=== PATIENT | male | born 1980 | race Caucasian/White ===

== ENCOUNTER 2021-01-19 09:06 | Outpatient (REF) | payer MEDICAID, SELFPAY ==
--- NOTE | ~2021-01-19 | XR_ITS ---
EXAMINATION: BILATERAL HAND X-RAY CLINICAL INFORMATION: Bilateral hand pain COMPARISON: None TECHNIQUE: 3 views of each hand FINDINGS: Right: Bone alignment is normal. No fracture or dislocation is seen. Joint spaces are normal. There is a small 2 mm radiopaque soft tissue foreign body adjacent to the radial dorsal middle phalanx of the third finger. Soft tissues are otherwise unremarkable. Left: Bone alignment is normal. No fracture or dislocation is seen. Joint spaces are normal. Soft tissues are normal. XR/XR hand LT min 3V IMPRESSION: Right: Radiopaque soft tissue foreign body adjacent to the middle phalanx of the third finger. Left: Unremarkable exam.
--- NOTE | ~2021-01-19 | XR_ITS ---
EXAMINATION: BILATERAL HAND X-RAY CLINICAL INFORMATION: Bilateral hand pain COMPARISON: None TECHNIQUE: 3 views of each hand FINDINGS: Right: Bone alignment is normal. No fracture or dislocation is seen. Joint spaces are normal. There is a small 2 mm radiopaque soft tissue foreign body adjacent to the radial dorsal middle phalanx of the third finger. Soft tissues are otherwise unremarkable. Left: Bone alignment is normal. No fracture or dislocation is seen. Joint spaces are normal. Soft tissues are normal. XR/XR hand RT min 3V IMPRESSION: Right: Radiopaque soft tissue foreign body adjacent to the middle phalanx of the third finger. Left: Unremarkable exam.
[2021-01-19 09:42] LABS: MANUAL DIFF FLAG NO
[2021-01-19 09:46] LABS: Basophils Percent Auto 0.6 % (0-2); Eosinophils Absolute Auto 0.3 X10*3/uL (0.0-0.4); Eosinophils Percent Auto 5.4 % (0-4); Hematocrit 42.9 % (42-52); Hemoglobin 14.4 g/dl (14.0-18.0); Imm Gran Abs Auto 0.01 X10*3/uL (0.00-0.03); Imm Gran Pct Auto 0.2 % (0.0-0.4); Lymphocytes Absolute Auto 1.7 X10*3/uL (1.2-4.9); Lymphocytes Percent Auto 31.1 % (20-40); Mean Corpuscular HGB Conc 33.6 g/dl (31.0-36.0); Mean Corpuscular Hemoglobin 29.4 pg (27.0-33.0); Mean Corpuscular Volume 87.7 fL (80-98); Mean Platelet Volume 10.6 fL (9.4-12.4); Monocytes Absolute Auto 0.4 X10*3/uL (0.1-1.2); Monocytes Percent Auto 7.8 % (2-11); Neutrophils Percent Auto 54.9 % (45-73); Platelet Count 230 X10*3/uL (160-400); Red Blood Count 4.89 X10*6/uL (4.60-5.80); White Blood Count 5.4 X10*3/uL (4.8-10.8)
[2021-01-19 10:09] LABS: Estimated Average Glucose 111 mg/dL; Hemoglobin A1c % 5.5 %
[2021-01-19 10:26] LABS: Alanine Aminotransferase 45 U/L (0-40); Albumin Level 4.3 g/dL (3.5-5.0); Alkaline Phosphatase 82 U/L (39-117); Anion Gap 11 (12-20); Aspartate Amino Transferase 31 U/L (5-37); Bilirubin Direct 0.2 mg/dL (0.0-0.5); Bilirubin Total 0.6 mg/dL (0.0-1.0); Blood Urea Nitrogen 21 mg/dL (9-16); Calcium 9.2 mg/dL (8.4-10.2); Carbon Dioxide 27 mmol/L (22-29); Chloride 107 mmol/L (96-108); Estimated Glomerular Filt Rate > 60; Glucose Random 105 mg/dL (60-115); Potassium 4.1 mmol/L (3.3-5.1); Sodium 141 mmol/L (135-145); Total Protein 7.2 g/dL (6.5-8.0)
[2021-01-19 10:47] LABS: TSH reflex Free T4 0.77 uIU/mL (0.32-4.0)
== END 2021-01-19 09:07 | disposition home or self-care (01) ==
LOC: HO.LAB 09:06
PROVIDERS: PCP Internal Medicine; Visit Provider Internal Medicine
DX: K59.01 Slow transit constipation (principal); R10.13 Epigastric pain; M79.641 Pain in right hand; M79.642 Pain in left hand
CPT/HCPCS: 36415; 73130; 80048; 80076; 83036; 84443; 85025; 87338

== ENCOUNTER 2022-03-05 11:00 | Outpatient (RCR) | payer MEDICAID, SELFPAY | END 2022-03-22 11:48 | disposition home or self-care (01) | LOC: HO.PTCHIC 11:00 | PROVIDERS: PCP Internal Medicine; Visit Provider Internal Medicine | DX: M26.602 Left temporomandibular joint disorder, unspecified (principal) | CPT/HCPCS: 97110; 97161 ==

== ENCOUNTER 2023-09-15 09:40 | Outpatient (REF) | payer MEDICAID, SELFPAY ==
--- NOTE | ~2023-09-15 | XR_ITS ---
EXAMINATION: XR KNEE, LEFT CLINICAL INFORMATION: Left knee pain, swelling, trauma one month prior COMPARISON: None available. TECHNIQUE: Four views of the left knee. FINDINGS: No fracture or joint effusion. Alignment is anatomic. Joint spaces are maintained. No abnormal soft tissue calcification. XR/XR knee LT 4V IMPRESSION: Unremarkable plain radiographs of the left knee.
== END 2023-09-15 09:41 | disposition home or self-care (01) ==
LOC: HO.HHCX 09:40
PROVIDERS: Visit Provider Family Medicine
DX: M25.562 Pain in left knee (principal)
CPT/HCPCS: 0353U; 36415; 73564; 80048; 80076; 82043; 82306; 82570; 83036; 84439; 84443; 85025; 86695; 86696; 86706; 86780; 86803; 87340; 87389

== ENCOUNTER 2023-09-15 10:05 | Outpatient (REF) | payer MEDICAID, SELFPAY ==
[2023-09-15 11:17] LABS: MANUAL DIFF FLAG NO
[2023-09-15 11:24] LABS: Basophils Percent Auto 0.5 % (0-2); Eosinophils Absolute Auto 0.2 X10*3/uL (0.0-0.4); Eosinophils Percent Auto 5.3 % (0-4); Imm Gran Abs Auto 0.01 X10*3/uL (0.00-0.03); Imm Gran Pct Auto 0.2 % (0.0-0.4); Lymphocytes Absolute Auto 1.5 X10*3/uL (1.2-4.9); Mean Corpuscular HGB Conc 33.3 g/dl (31.0-36.0); Mean Corpuscular Hemoglobin 30.1 pg (27.0-33.0); Mean Corpuscular Volume 90.2 fL (80.0-98.0); Mean Platelet Volume 10.4 fL (9.4-12.4); Monocytes Absolute Auto 0.4 X10*3/uL (0.1-1.2); Monocytes Percent Auto 8.9 % (2-11); Neutrophils Absolute Auto 2.1 x10*3/uL (2.0-8.3); Neutrophils Percent Auto 50.1 % (45-73); Platelet Count 235 X10*3/uL (160-400); Red Blood Count 4.99 X10*6/uL (4.60-5.80); Red Cell Distribution Width 12.2 % (11.0-16.0); White Blood Count 4.1 X10*3/uL (4.8-10.8)
[2023-09-15 11:32] LABS: Estimated Average Glucose 103 mg/dL; Hemoglobin A1c % 5.2 % (<6.0)
[2023-09-15 12:48] LABS: Free T4 (Free Thyroxine) 1.01 ng/dL (0.71-1.85); Thyroid Stimulating Hormone 1.01 uIU/mL (0.32-4.0); Vitamin D 25-OH Total 20.7 ng/mL (>30)
[2023-09-15 13:01] LABS: Anion Gap 12 (12-20)
[2023-09-15 13:06] LABS: Alanine Aminotransferase 24 U/L (0-40); Albumin Level 4.4 g/dL (3.5-5.0); Alkaline Phosphatase 89 U/L (39-117); Aspartate Amino Transferase 19 U/L (5-37); Bilirubin Direct 0.2 mg/dL (0.0-0.5); Bilirubin Total 0.5 mg/dL (0.0-1.0); Blood Urea Nitrogen 18 mg/dL (9-16); Calcium 9.7 mg/dL (8.4-10.2); Carbon Dioxide 24 mmol/L (22-29); Chloride 107 mmol/L (96-108); Estimated Glomerular Filt Rate > 60; Glucose Random 86 mg/dL (60-115); Potassium 3.8 mmol/L (3.3-5.1); Sodium 139 mmol/L (135-145); Total Protein 7.8 g/dL (6.5-8.0)
[2023-09-15 13:27] LABS: Creatinine Urine 213.21 mg/dL; Microalbum/Creatinine Ratio Ur 3.2 ug/mg cr (<30)
[2023-09-15 15:10] LABS: CT PCR NOT DETECTED (Not Detect.); NG PCR NOT DETECTED (Not Detect.)
[2023-09-16 07:41] LABS: Syphilis Screen Nonreactive (Nonreactive)
[2023-09-16 08:14] LABS: HBS Num1 > 1000.00 mIU/mL (0-7.99); HIV AB/AG Nonreactive (Nonreactive); HIV Num 1 0.06 S/CO (0.00-0.99); Hepatitis B Surface Antigen Negative (Negative); ~HepC Num1 0.07 S/CO (0.00-0.79); ~Hepatitis B Surface Antibody REACTIVE (Nonreactive); ~Hepatitis C Antibody Nonreactive (Nonreactive)
[2023-09-16 18:09] LABS: Herpes Simplex Type 2 IgG <0.90 index
== END 2023-09-15 10:06 | disposition home or self-care (01) ==
LOC: HO.HHCL 10:05
PROVIDERS: Visit Provider Family Medicine
DX: Z11.3 Encounter for screening for infections with a predominantly sexual mode of transmission (principal); Z11.4 Encounter for screening for human immunodeficiency virus [HIV]; R03.0 Elevated blood-pressure reading, without diagnosis of hypertension
CPT/HCPCS: 0353U; 36415; 80048; 80076; 82043; 82306; 82570; 83036; 84439; 84443; 85025; 86695; 86696; 86706; 86780; 86803; 87340; 87389

== ENCOUNTER 2023-09-20 15:30 | Outpatient (REF) | payer MEDICAID, SELFPAY ==
[2023-09-22 10:19] LABS: Trichomonas vag. RNA Ur Male NOT DETECTED (NOT DETECTED)
== END 2023-09-20 15:31 | disposition home or self-care (01) ==
LOC: HO.LAB 15:30
PROVIDERS: Visit Provider Family Medicine
DX: Z11.3 Encounter for screening for infections with a predominantly sexual mode of transmission (principal)
CPT/HCPCS: 36415; 87661

== ENCOUNTER 2023-09-27 14:40 | Outpatient (AMB) | payer MEDICAID, SELFPAY ==
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
[2023-09-27 14:55] VITALS: BMI 28.9
== END 2023-09-27 15:17 | disposition home or self-care (01) ==
PROVIDERS: PCP Internal Medicine; Visit Provider Orthopaedic Surgery
DX: M25.562 Pain in left knee (principal)
CPT/HCPCS: 99202

== ENCOUNTER → 2023-09-27 14:40 | Outpatient (BNVA) | payer MEDICAID, SELFPAY | PROVIDERS: PCP Internal Medicine; Visit Provider Orthopaedic Surgery | DX: M25.562 Pain in left knee (principal) | CPT/HCPCS: 99202 ==

== ENCOUNTER → 2023-10-18 14:02 | Outpatient (BNV) | payer MEDICAID, OTHER, SELFPAY | PROVIDERS: PCP Family Medicine; Visit Provider Internal Medicine Medical Oncology | DX: I82.452 Acute embolism and thrombosis of left peroneal vein (principal) | CPT/HCPCS: 99204; 99213 ==

== ENCOUNTER 2023-11-03 14:02 | Outpatient (REF) | payer OTHER, SELFPAY ==
--- NOTE | ~2023-11-03 | US_ITS ---
EXAMINATION: US VENOUS ULTRASOUND WITH DOPPLER LOWER EXTREMITY, LEFT CLINICAL INFORMATION: History of DVT. COMPARISON: None available. TECHNIQUE: Ultrasound of the deep veins is performed from the hip to the calf with compression sonography and color and pulse Doppler assessment. Spectral analysis with color-flow imaging is performed. FINDINGS: There is normal venous compression and respiratory variation and augmented flow. The visualized common femoral vein, superficial femoral vein, profunda femoral vein, popliteal vein, and the trifurcation region shows no evidence of deep venous thrombosis. If the patient's symptoms persist, followup ultrasound in 5 days 7 days might be of value to exclude proximal propagation from a non-visualized calf vein. US/US venous duplex LE IMPRESSION: No DVT demonstrated in the left lower extremity.
== END 2023-11-03 14:03 | disposition home or self-care (01) ==
LOC: HO.HMGCX 14:02
PROVIDERS: PCP Family Medicine; Visit Provider Internal Medicine Medical Oncology
DX: I82.402 Acute embolism and thrombosis of unspecified deep veins of left lower extremity (principal)
CPT/HCPCS: 93971

== ENCOUNTER 2023-11-07 15:55 | Outpatient (REF) | payer OTHER, SELFPAY ==
--- NOTE | ~2023-11-07 | MR_ITS ---
EXAMINATION: MR KNEE WITHOUT CONTRAST, LEFT CLINICAL INFORMATION: Left knee pain. COMPARISON: Radiographs dated 09/05/2023. TECHNIQUE: MRI of the knee without contrast was performed using routine sequences on a high-field scanner. FINDINGS: MENISCI: Medial Meniscus: There is a complex tear of the posterior horn and body with decreased orthotopic meniscal tissue due to 2 displaced flap fragments. At the junction of the anterior horn and body, there is a 2 cm long meniscal flap fragment which is displaced proximally along the anteromedial margin of the medial femoral condyle (image 18/27 of series 6). At the posterior root, there is a 1.8 cm meniscal fragment which is displaced anterolaterally. A horizontal component to the tear is present at the orthotopic meniscal tissue at the posterior horn and body with abnormal increased intrasubstance signal. Lateral Meniscus: Intact LIGAMENTS: Cruciate: Intact Collateral: Intact EXTENSOR MECHANISM: Quadriceps and patellar tendons are intact. There is mild edema signal in the inferolateral aspect of the prefemoral fat pad. ARTICULAR CARTILAGE/BONE: Patellofemoral Compartment: At the inferolateral margin of the patella, there is a small 6 mm osseous fragment which may correspond to an old avulsion injury or developmental variant. Articular cartilage appears relatively well-preserved. Medial Compartment: Normal Lateral Compartment: Normal JOINT FLUID AND BURSAE: Small joint effusion. Trace Taylor's cyst. No appreciable intra-articular loose bodies. MR/MR knee LT wo con IMPRESSION: 1. Complex tear of the posterior horn and body of the medial meniscus with 2 displaced flap fragments. 2. Small joint effusion and trace Taylor's cyst.
== END 2023-11-07 15:56 | disposition home or self-care (01) ==
LOC: HO.MRI 15:55
PROVIDERS: PCP Family Medicine; Visit Provider Orthopaedic Surgery
DX: M25.562 Pain in left knee (principal)
CPT/HCPCS: 73721

== ENCOUNTER 2023-11-22 11:01 | Outpatient (AMB) | payer OTHER, SELFPAY ==
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
[2023-11-22 11:26] VITALS: BMI 29.8
== END 2023-11-22 11:52 | disposition home or self-care (01) ==
PROVIDERS: PCP Family Medicine; Visit Provider Orthopaedic Surgery
DX: M25.562 Pain in left knee (principal)
CPT/HCPCS: 99213

== ENCOUNTER → 2023-11-22 11:01 | Outpatient (BNVA) | payer OTHER, SELFPAY | PROVIDERS: PCP Family Medicine; Visit Provider Orthopaedic Surgery ==

== ENCOUNTER 2023-12-22 13:32 | Outpatient (REF) | payer OTHER, SELFPAY ==
[2023-12-22 16:19] LABS: MANUAL DIFF FLAG NO
[2023-12-22 16:30] LABS: Basophils Percent Auto 0.4 % (0-2); Eosinophils Absolute Auto 0.2 X10*3/uL (0.0-0.4); Eosinophils Percent Auto 3.5 % (0-4); Hematocrit 44.8 % (42.0-52.0); Hemoglobin 15.3 g/dl (14.0-18.0); Imm Gran Abs Auto 0.01 X10*3/uL (0.00-0.03); Imm Gran Pct Auto 0.2 % (0.0-0.4); Mean Corpuscular HGB Conc 34.2 g/dl (31.0-36.0); Mean Corpuscular Hemoglobin 30.2 pg (27.0-33.0); Mean Corpuscular Volume 88.5 fL (80.0-98.0); Mean Platelet Volume 10.8 fL (9.4-12.4); Monocytes Absolute Auto 0.5 X10*3/uL (0.1-1.2); Monocytes Percent Auto 9.8 % (2-11); Neutrophils Absolute Auto 2.7 x10*3/uL (2.0-8.3); Neutrophils Percent Auto 50.1 % (45-73); Platelet Count 268 X10*3/uL (160-400); Red Blood Count 5.06 X10*6/uL (4.60-5.80); Red Cell Distribution Width 12.5 % (11.0-16.0); White Blood Count 5.4 X10*3/uL (4.8-10.8)
[2023-12-22 16:46] LABS: Anion Gap 12 (12-20); Blood Urea Nitrogen 16 mg/dL (9-16); Calcium 10.8 mg/dL (8.4-10.2); Carbon Dioxide 26 mmol/L (22-29); Chloride 105 mmol/L (96-108); Estimated Glomerular Filt Rate > 60; Glucose Random 79 mg/dL (60-115); Potassium 4.2 mmol/L (3.3-5.1); Sodium 139 mmol/L (135-145)
== END 2023-12-22 13:33 | disposition home or self-care (01) ==
LOC: HO.HHCL 13:32
PROVIDERS: Visit Provider Internal Medicine
DX: Z01.818 Encounter for other preprocedural examination (principal); I10 Essential (primary) hypertension
CPT/HCPCS: 36415; 80048; 85025

== ENCOUNTER 2024-01-23 14:40 | Outpatient (REF) | payer OTHER, SELFPAY ==
[2024-01-23 16:15] LABS: MANUAL DIFF FLAG NO
[2024-01-23 16:36] LABS: Basophils Percent Auto 0.4 % (0-2); Eosinophils Absolute Auto 0.3 X10*3/uL (0.0-0.4); Eosinophils Percent Auto 3.9 % (0-4); Hematocrit 40.9 % (42.0-52.0); Hemoglobin 14.1 g/dl (14.0-18.0); Imm Gran Abs Auto 0.02 X10*3/uL (0.00-0.03); Imm Gran Pct Auto 0.3 % (0.0-0.4); Lymphocytes Absolute Auto 2.3 X10*3/uL (1.2-4.9); Mean Corpuscular HGB Conc 34.5 g/dl (31.0-36.0); Mean Corpuscular Hemoglobin 29.9 pg (27.0-33.0); Mean Corpuscular Volume 86.7 fL (80.0-98.0); Mean Platelet Volume 9.9 fL (9.4-12.4); Monocytes Absolute Auto 0.5 X10*3/uL (0.1-1.2); Monocytes Percent Auto 6.7 % (2-11); Neutrophils Absolute Auto 3.8 x10*3/uL (2.0-8.3); Neutrophils Percent Auto 55.7 % (45-73); Platelet Count 349 X10*3/uL (160-400); Red Blood Count 4.72 X10*6/uL (4.60-5.80); Red Cell Distribution Width 12.2 % (11.0-16.0); White Blood Count 6.9 X10*3/uL (4.8-10.8)
[2024-01-23 16:51] LABS: Alanine Aminotransferase 33 U/L (0-40); Albumin Level 4.3 g/dL (3.5-5.0); Alkaline Phosphatase 76 U/L (39-117); Anion Gap 12 (12-20); Aspartate Amino Transferase 20 U/L (5-37); Bilirubin Total 0.2 mg/dL (0.0-1.0); Blood Urea Nitrogen 20 mg/dL (9-16); C Reactive Protein 0.34 mg/dL (< or = 0.50); Calcium 9.5 mg/dL (8.4-10.2); Carbon Dioxide 26 mmol/L (22-29); Chloride 105 mmol/L (96-108); Estimated Glomerular Filt Rate > 60; Glucose Random 98 mg/dL (60-115); Potassium 4.3 mmol/L (3.3-5.1); Sodium 139 mmol/L (135-145); Total Protein 8.2 g/dL (6.5-8.0)
[2024-01-23 17:08] LABS: TSH reflex Free T4 1.23 uIU/mL (0.32-4.0)
[2024-01-24 08:30] LABS: HIV AB/AG Nonreactive (Nonreactive); HIV Num 1 0.05 S/CO (0.00-0.99)
[2024-01-24 19:34] LABS: Lyme Abs Screen <0.90 index
[2024-01-25 09:18] LABS: RPR Rapid Plasma Reagin NON-REACTIVE (NON-REACTIVE)
[2024-01-31 13:09] LABS: Anti Nuclear Antibody Screen POSITIVE (NEGATIVE); Anti Nuclear Antibody Titer 1:40 titer
== END 2024-01-23 14:41 | disposition home or self-care (01) ==
LOC: HO.HHCL 14:40
PROVIDERS: Visit Provider Emergency Medicine
DX: I77.6 Arteritis, unspecified (principal)
CPT/HCPCS: 36415; 80053; 84443; 85025; 86038; 86039; 86140; 86592; 86617; 86618; 87389

== ENCOUNTER 2024-01-23 15:05 | Outpatient (REF) | payer OTHER, SELFPAY ==
--- NOTE | ~2024-01-23 | US_ITS ---
EXAMINATION: US VENOUS ULTRASOUND WITH DOPPLER LOWER EXTREMITY, RIGHT CLINICAL INFORMATION: Right leg edema, rule out DVT. COMPARISON: 11/03/2023 TECHNIQUE: Ultrasound of the deep veins is performed from the hip to the calf with compression sonography and color and pulse Doppler assessment. Spectral analysis with color-flow imaging is performed. FINDINGS: There is normal venous compression and respiratory variation and augmented flow. The visualized common femoral vein, superficial femoral vein, profunda femoral vein, popliteal vein, and the trifurcation region shows no evidence of deep venous thrombosis. There is no significant popliteal fossa cyst. If the patient's symptoms persist, follow-up ultrasound in 5 to 7 days might be of value to exclude proximal propagation from a nonvisualized calf vein. US/US venous duplex LE RT IMPRESSION: No DVT demonstrated in the right lower extremity.
== END 2024-01-23 15:06 | disposition home or self-care (01) ==
LOC: HO.US 15:05
PROVIDERS: PCP Family Medicine; Visit Provider Emergency Medicine
DX: I77.6 Arteritis, unspecified (principal); R60.0 Localized edema
CPT/HCPCS: 93971

== ENCOUNTER 2024-02-03 07:23 | Day surgery (SDC) | payer OTHER, SELFPAY ==
[2024-02-01 10:10] VITALS: BMI 29.8
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
[2024-02-03] VITALS (7 sets, daily range): BP systolic 105–151; BP diastolic 57–85; PULSE 58–71; RESP 10–18; TEMP 36.3–36.8; O2SAT 94–99; BMI 30.2
[2024-02-03] MEDS: Lactated Ringers 1,000 ML 100 ML IVCONT (08:01)
--- NOTE | 2024-02-03 10:09 | P.BOP_ITS ---
Brief Operative Note Date of Service: 02/03/24 Pre-op diagnosis: Left knee medial meniscus tear Post-op diagnosis: same Procedure: Left knee diagnostic arthroscopy with left knee arthroscopic partial medial meniscectomy Surgeon: Sachin Jain MD Anesthesia: GLMA Was an Legal Administrative Assistant used for this Procedure?: No Estimated blood loss (mL): 10 Pathology: none sent Condition: stable Disposition: PACU
--- NOTE | 2024-02-03 10:09 | P.OP_ITS ---
Operative Note Operative Note Date of Service: 02/03/24 Narrative: After the patient was identified as Zack Zhang and his left knee was initialed by myself they were brought to the operating room where general anesthesia was induced by the anesthesiologist in routine fashion. The patient was given 2 g of IV Ancef preoperatively for infection prophylaxis. The patient's left lower extremity was prepped and draped in sterile fashion. A formal time-out was completed. Marcaine was injected into the planned incision sites as well as the patient's left knee joint. A #11 scalpel blade was used to make an anterolateral portal 1 cm proximal to the joint line and 1 cm lateral to the pat ellar tendon. Blunt trocar technique was used to enter the suprapatellar pouch with the knee in extension. Diagnostic arthroscopy showed multiple bands of thickened plica which would be excised at the end of the procedure. There were no loose bodies or abnormalities found in either the medial or lateral gutters. The articular surface of the patella showed diffuse grade 1 degenerative changes. The trochlear groove articular surface showed minimal degenerative changes. The patient's knee was flexed to 45 degrees and a valgus force was placed upon it. The medial compartment was entered. An anteromedial portal was made 1 cm proximal to the joint line and 1 cm medial to the patellar tendon. Probing of the medial meniscus showed a radial tear of the posterior horn. A partial medial meniscectomy was performed using the arthroscopic shaver. Following the partial meniscectomy the remainder of the meniscus tissue was stable. There were diffuse grade 1 degenerative changes of the medial femoral condyle as well as minimal degenerative changes of the medial tibial plateau. The patient's knee was placed into a neutral position. There was no injury to the anterior cruciate ligament. The patient's knee was then placed in the figure of 4 position and the lateral compartment was entered. There was no evidence of lateral meniscus tearing. There were minimal degenerative changes of the lateral femoral condyle and lateral tibial plateau. The patient's knee was once again brought into extension and the suprapatellar pouch was entered. The arthroscopic shaver and the ArthroCare Wand were used to excise the thickened bands of plica. The knee joint was irrigated and then drained. All arthroscopic instruments were removed. The 2 portals were closed with 3-0 nylon interrupted suture. The knee joint was injected with Marcaine. Dry sterile dressing and Cholo bandages were placed over the patient's knee. The patient was awoken and extubated in the operating room. The patient was transferred to the recovery room in stable condition.
[2024-02-03] MEDS: cefTRIAXone sodium 1 GM in 0.9 % Sodium Chloride 50 ML IV (10:18)
== END 2024-02-03 11:30 | disposition home or self-care (01) ==
PROVIDERS: PCP Family Medicine; Visit Provider Orthopaedic Surgery
PROC: (CPT 29870; principal; 2024-02-03 09:00)
DX: S83.242A Other tear of medial meniscus, current injury, left knee, initial encounter (principal); M25.362 Other instability, left knee; M67.52 Plica syndrome, left knee; M17.12 Unilateral primary osteoarthritis, left knee; V89.2XXA Person injured in unspecified motor-vehicle accident, traffic, initial encounter; X50.1XXA Overexertion from prolonged static or awkward postures, initial encounter; Y93.89 Activity, other specified; Y92.410 Unspecified street and highway as the place of occurrence of the external cause; Y99.8 Other external cause status; I10 Essential (primary) hypertension; Z86.718 Personal history of other venous thrombosis and embolism; Z79.01 Long term (current) use of anticoagulants; Z79.899 Other long term (current) drug therapy; Z87.891 Personal history of nicotine dependence
CPT/HCPCS: 29881; J0131; J0171; J0690; J0696; J1100; J1885; J2250; J2405; J2704; J2795; J3010

== ENCOUNTER → 2024-02-03 07:23 | Outpatient (BNV) | payer OTHER, SELFPAY | PROVIDERS: PCP Family Medicine; Visit Provider Orthopaedic Surgery | DX: S83.242A Other tear of medial meniscus, current injury, left knee, initial encounter (principal) | CPT/HCPCS: 29881 ==

== ENCOUNTER 2024-02-16 11:14 | Outpatient (AMB) | payer OTHER, SELFPAY ==
--- NOTE | 2024-02-16 06:24 | MHC.OFFVIS ---
Intake Vital Signs 02/16/24 11:18 Height 5 ft 8 in Weight 190 lb BMI 28.9 Intake Visit Reasons: PO-Lt Knee 02/03/24 Intake Note: Zack gramajo 43 year old male presents today for a post operative left knee on 02/03/24 . Patient reports he is doing well, states he continues to have swelling. He does not have any pain however with stair uses he had discomfort. States going down stairs he feels unstable and has to take one step out of time. Allergies No Known Allergies Allergy (Verified 02/16/24 11:23) Medication List - Last Reconciled 02/16/24 by Susannah Montero PA-C aspirin 325 mg PO Q12H cholecalciferol (vitamin D3) (Vitamin D3) 25 mcg PO DAILY lisinopril 5 mg PO QAM oxycodone 5 mg PO Q6H PRN 1 week HPI PO-Lt Knee 02/03/24 HPI Details 43-year-old male who returns to the office today for post-op left knee , 02/03/[address] Jain. He continues to have occasional swelling with standing as well as discomfort and soreness in his knee when going downstairs. He reports he feels unstable while going downstairs and has to take one step at a time. He has been doing exercises at home as instructed. He has no other concerns today. [facility] Medical History HTN (hypertension) Surgical History No pertinent past surgical history Social History Household Members: Family Patient Tobacco Use Status: Former Tobacco user Quit Date: 2020 Tobacco use type: Cigarette Years Smoked: 20 Second Hand Smoke Exposure: No service: No Current occupational status: employed Current occupation: patient transportation driver, right hand dominant Review of Systems Const All systems reviewed & are unremarkable except as noted in HPI and below Physical Exam Vital Signs: BMI result Body Mass Index 28.9 Extrem Other: Left knee: Normal to inspection. No erythema or joint effusion. His ROM 0-100 degrees. Calf supple, nontender. NVI. Results Reviewed Results Reviewed: Brief Operative Note Date of Service: 02/03/24 Pre-op diagnosis: Left knee medial meniscus tear Post-op diagnosis: same Procedure: Left knee diagnostic arthroscopy with left knee arthroscopic partial medial meniscectomy Surgeon: Sachin Jain MD Assessment & Plan Assessment & Plan (1) Left knee pain: Code(s): M25.562 - Pain in left knee Plan Sutures removed today, steri strips applied. We discussed formal physical therapy which he would like to hold off at this time. He states he has some home exercises he can work on. I did stress the importance of core, glute, hip, and hamstring strengthening to help with the stability of the knee. he will avoid any type of lifting, pulling, pulling, kneeling or squatting at work and return to work on 01/22/24 without restrictions. He will see me back in [address] Jain, sooner if needed. Patient Instructions: Scribed for Susannah Montero PA-C, by Frederick Roche senior medical director, on 02/16/2024 at 11:30 AM EST. ISusannah PA-C, have personally reviewed and agree with the information entered by the scribe. Coding Level of Care Code Global (90399) Diagnoses Left knee pain M25.562
[2024-02-16 11:18] VITALS: BMI 28.9
== END 2024-02-16 11:44 | disposition home or self-care (01) ==
PROVIDERS: PCP Family Medicine; Visit Provider Physician Assistant
DX: M25.562 Pain in left knee (principal)
CPT/HCPCS: 99024

== ENCOUNTER → 2024-02-16 11:14 | Outpatient (BNVA) | payer OTHER, SELFPAY | PROVIDERS: PCP Family Medicine; Visit Provider Physician Assistant ==

== ENCOUNTER 2024-03-15 10:07 | Outpatient (AMB) | payer OTHER, SELFPAY ==
[2024-03-15 10:14] VITALS: BMI 28.9
--- NOTE | 2024-03-15 10:14 | A.OFFVIS_ITS ---
Vital Signs 03/15/24 10:14 Height 5 ft 8 in Weight 190 lb BMI 28.9 Intake Visit Reasons: PO-Lt Knee 02/03/24 DR-book with Dr Jain Intake Note: Prashanth is a 43 year old male who presents for his post operative left knee on 02/03/2024 DRFabio The patient reports mild intermittent discomfort in his left knee. He continues with his home stretching program. He denies any fevers or chills. He would like to return to full duty at work. Patient reports he is doing well but still has some swelling and slight discomfort along with tightness when he bends the knee. Allergies No Known Allergies Allergy (Verified 03/15/24 10:19) Medication List - Last Reconciled 03/16/24 by Sachin Jain MD aspirin 325 mg PO Q12H cholecalciferol (vitamin D3) (Vitamin D3) 25 mcg PO DAILY lisinopril 5 mg PO QAM oxycodone 5 mg PO Q6H PRN 1 week PFSH Medical History HTN (hypertension) Surgical History (Updated 03/15/24 @ 10:21 by Heather Rocha CMA) Hx of left knee surgery No pertinent past surgical history (02/03/24) Social History Household Members: Family Patient Tobacco Use Status: Former Tobacco user Quit Date: 2020 Tobacco use type: Cigarette Years Smoked: 20 Second Hand Smoke Exposure: No service: No Current occupational status: employed Current occupation: emergency medical technician/driver, right hand dominant Physical Exam Vital Signs: BMI result Body Mass Index 28.9 Extrem Other: Left knee examination shows that the surgical incisions are well healed, no erythema, minimal discomfort with range of motion, no crepitus with range of motion Assessment & Plan Assessment & Plan (1) Left knee pain: Code(s): M25.562 - Pain in left knee Category: Medical Plan Mr. Zhang continues to do well after undergoing left knee arthroscopic surgery on 02/03/2024. Will continue to progress to activities as tolerated. I have cleared him to return to full duty at work. He will contact me prior to his follow-up appointment in 2 months should any questions or concerns arise. Feel free to call me at any time should questions regarding his orthopedic management arise.
== END 2024-03-15 10:55 | disposition home or self-care (01) ==
PROVIDERS: PCP Family Medicine; Visit Provider Orthopaedic Surgery
DX: M25.562 Pain in left knee (principal)
CPT/HCPCS: 99024

== ENCOUNTER → 2024-03-15 10:07 | Outpatient (BNVA) | payer OTHER, SELFPAY | PROVIDERS: PCP Family Medicine; Visit Provider Orthopaedic Surgery ==